=== PATIENT | male | born 1975 | race Caucasian/White ===

== ENCOUNTER 2017-02-28 11:46 | Emergency (ER) | payer MEDICAID ==
[~2017-02-28] VITALS: Ht 190.5 cm; Wt 73.0 kg
[~2017-02-28 11:46] MED LIST: BENZ1TAB7 PO; HYDR-569 PO; NABU500T2 PO; NYST1000 PO; RISP4TAB2 PO; VENL75CA55 PO
[2017-02-28 11:47] VITALS: BP 105/79
[2017-02-28] MEDS ORDERED: AZIT-57 PO (12:56)
== END 2017-02-28 13:34 | disposition home or self-care (01) ==
LOC: ER 11:46
DX: R05 Cough (principal); R09.89 Other specified symptoms and signs involving the circulatory and respiratory systems; R93.8 Abnormal findings on diagnostic imaging of other specified body structures; M25.551 Pain in right hip; G89.29 Other chronic pain; Z59.0 Homelessness; Z56.0 Unemployment, unspecified; Z60.2 Problems related to living alone; Z79.899 Other long term (current) drug therapy; Z88.0 Allergy status to penicillin
CPT/HCPCS: 71046; 99284

== ENCOUNTER 2017-04-19 13:21 | Emergency (ER) | payer MEDICAID ==
[~2017-04-19] VITALS: Ht 190.5 cm; Wt 75.0 kg
[2017-04-19 13:23] VITALS: BP 167/125
[2017-04-19] MEDS ORDERED: SULF1TAB49 PO (13:48)
== END 2017-04-19 13:54 | disposition home or self-care (01) ==
LOC: ER 13:22
DX: L03.113 Cellulitis of right upper limb (principal); F15.10 Other stimulant abuse, uncomplicated; M25.551 Pain in right hip; Z88.0 Allergy status to penicillin
CPT/HCPCS: 99284

== ENCOUNTER 2017-04-21 16:36 | Emergency (ER) | payer MEDICAID ==
[~2017-04-21] VITALS: Ht 190.5 cm; Wt 75.0 kg
[~2017-04-21 16:36] MED LIST changes: +SULF1TAB49 PO
[2017-04-21] MEDS ORDERED: LIDOcaine 1% 30ml preserv. free vial IJ ONE (19:40)
[2017-04-21] MEDS ORDERED: acetaminophen 325mg tablet PO ONE (19:50)
[2017-04-21] MEDS ORDERED: ibuprofen tablet 400 MG TABLET PO ONE (19:50)
[2017-04-21] MEDS ORDERED: SULF1TAB49 PO (21:46)
[2017-04-21 21:57] VITALS: BP 126/75
== END 2017-04-21 22:18 | disposition home or self-care (01) ==
LOC: ER 16:36
DX: L03.011 Cellulitis of right finger (principal); M25.551 Pain in right hip
CPT/HCPCS: 64450; 72170; 99284; A6255; J3490

== ENCOUNTER 2017-06-14 02:03 | Emergency (ER) | payer MEDICAID ==
[~2017-06-14] VITALS: Ht 177.8 cm; Wt 60.0 kg
[~2017-06-14 02:03] MED LIST changes: -SULF1TAB49 PO
[2017-06-14] MEDS ORDERED: LORazepam 2 mg/ml vial IM ONE (02:20)
[2017-06-14] MEDS ORDERED: haloperidol lactate 5mg/ml inj IM ONE (02:20)
[2017-06-14 03:02] LABS: BASOPHILS % (AUTO) 0.4 % (0-1); EOSINOPHILS # (AUTO) 0.2 X10'3 (0-0.9); EOSINOPHILS % (AUTO) 2.2 % (0-6); HEMOGLOBIN 10.4 g/dl (14.0-17.9); LYMPHOCYTES # (AUTO) 0.6 X10'3 (1.1-4.8); LYMPHOCYTES % (AUTO) 7.8 % (21-51); MEAN CORPUSCULAR HGB CONC 34.7 % (33.0-36.5); MEAN CORPUSCULAR VOLUME 92.2 FL (78-98); MEAN PLATELET VOLUME 6.4 FL (7.4-10.4); MONOCYTES # (AUTO) 0.6 X10'3 (0-0.9); MONOCYTES % (AUTO) 8.1 % (2-12); NEUTROPHILS # (AUTO) 6.5 X10'3 (1.8-7.7); NEUTROPHILS % (AUTO) 81.5 % (42-75); PLATELET COUNT 308 X10'3 (140-440); RED BLOOD COUNT 3.25 X10'6 (4.70-6.10); RED CELL DISTRIBUTION WIDTH 14.1 % (11.5-14.5); WHITE BLOOD COUNT 7.9 X10'3 (4.5-11.0)
[2017-06-14 03:18] LABS: ALANINE AMINOTRANSFERASE 46 U/L (12-78); ALBUMIN 3.2 G/DL (3.4-5.0); ALBUMIN/GLOBULIN RATIO 0.8 (1.1-1.5); ALKALINE PHOSPHATASE 101 IU/L (46-116); ANION GAP 11 (8-16); ASPARTATE AMINO TRANSFERASE 45 U/L (10-37); BILIRUBIN,TOTAL 0.5 MG/DL (0.1-1.0); BLOOD UREA NITROGEN 23 MG/DL (7-18); BUN/CREATININE RATIO 26.7 (5.4-32.0); CHLORIDE 106 MMOL/L (99-107); CREATINE KINASE 309 U/L (39-308); CREATININE 0.86 MG/DL (0.60-1.10); ETHANOL 0.139 GM/DL (0.0-0.010); GLUCOSE 89 MG/DL (70-104); LIPASE 97 U/L (73-393); SODIUM 142 MMOL/L (135-145); TOTAL CARBON DIOXIDE 24.9 MMOL/L (24-32); TOTAL PROTEIN 7.4 G/DL (6.4-8.2); eGFR > 90 ML/MIN
[2017-06-14 03:32] LABS: POTASSIUM 2.8 MMOL/L (3.5-5.1)
[2017-06-14] MEDS ORDERED: potass W/LIDOcaine 10mEq/100ml 100 ML IV ONE ×2 (03:40→04:40)
[2017-06-14 04:12] LABS: CLARITY,URINE Clear (Clear); COLOR,URINE Yellow (Yellow); GLUCOSE, URINE Negative (Neg); KETONES,URINE Negative (Neg); LEUKOCYTE ESTERASE ,URINE Negative (Neg); NITRITES, URINE Negative (Neg); OCCULT BLOOD,URINE Moderate (Neg); PROTEIN,URINE Trace mg/dl (Neg)
[2017-06-14 04:14] LABS: UA COLLECTION TYPE STRAIGHT CATH
[2017-06-14 04:19] LABS: RBC,URINE 20-50 /HPF (0-2)
[2017-06-14 04:20] LABS: BACTERIA,URINE NONE SEEN /HPF (Neg); SQUAMOUS EPITHELIAL CELL,UR NONE SEEN /LPF (FEW); WBC,URINE 0-4 /HPF (0-4)
[2017-06-14 04:22] LABS: URINE AMPHETAMINE SCREEN POSITIVE (Neg); URINE BARBITUATE SCREEN NEGATIVE (Neg); URINE BENZODIAZEPINES SCREEN NEGATIVE (Neg); URINE CANNABINOID SCREEN POSITIVE (Neg); URINE COCAINE SCREEN NEGATIVE (Neg); URINE METHADONE SCREEN NEGATIVE (Neg); URINE OPIATE SCREEN NEGATIVE (Neg); URINE PHENCYCLIDINE SCREEN NEGATIVE (Neg)
[2017-06-14] MEDS ORDERED: iohexol 300mg/ml 100ml inj. ONE (04:51)
[2017-06-14] MEDS ORDERED: TETanus/Pertussis (Acell)/Diphther VAC/PF (Tdap-Adult) 0.5ml syringe IM ONE (07:05)
[2017-06-14] MEDS ORDERED: LIDOcaine 1.5% w/epinephrine 1:200,000 5ml ampul IJ ONE (07:05)
[2017-06-14 07:12] VITALS: BP 154/86
== END 2017-06-14 07:37 | disposition home or self-care (01) ==
LOC: ER 02:04
DX: S03.2XXA Dislocation of tooth, initial encounter (principal); S01.01XA Laceration without foreign body of scalp, initial encounter; S00.83XA Contusion of other part of head, initial encounter; S09.90XA Unspecified injury of head, initial encounter; F10.920 Alcohol use, unspecified with intoxication, uncomplicated; J45.909 Unspecified asthma, uncomplicated; G89.29 Other chronic pain; F17.200 Nicotine dependence, unspecified, uncomplicated; Z88.0 Allergy status to penicillin; Z79.899 Other long term (current) drug therapy; Z98.890 Other specified postprocedural states; Z56.0 Unemployment, unspecified; Z59.0 Homelessness; Z60.2 Problems related to living alone
CPT/HCPCS: 12002; 36415; 70450; 70486; 71045; 72110; 72125; 74176; 80053; 80305; 80320; 81001; 82550; 83690; 85025; 90471; 90715; 96360; 96361; 96372; 99285; A4353; J1630; J2060; J3480; J3490; J7030; Q9967